=== PATIENT | male | born 1960 ===

== ENCOUNTER → 2022-04-24 | Outpatient (REF) | LOC: M LABCFH 12:55 | PROVIDERS: ATTEND Student in an Organized Health Care Education/Training Program | DX: D69.6 Thrombocytopenia, unspecified (principal) ==

== ENCOUNTER → 2023-07-25 | Outpatient (REF) | LOC: M SLEEP HO 10:00 | PROVIDERS: ATTEND Student in an Organized Health Care Education/Training Program | DX: G47.33 Obstructive sleep apnea (adult) (pediatric) (principal) ==